=== PATIENT | male | born 1965 ===

== ENCOUNTER 2022-03-21 14:33 | Emergency (ER) | payer BC ==
[2022-03-21] MEDS ORDERED: Sodium Chloride 0.9% 10 ML Syringe FLUSH PRN (14:52)
[2022-03-21] MEDS ORDERED: ceFAZolin 2 GM in Sodium Chloride 0.9% 50 ML IV ONE (14:52)
[2022-03-21] MEDS ORDERED: HYDROmorphone 0.5 MG/0.5 ML Syringe IVPUSH ONE (14:53)
== END 2022-03-21 16:32 | disposition home or self-care (01) ==
LOC: JD.ED 14:33 → SUPCPDRO 14:33 → JD.ED 16:32
DX: S62.521B Displaced fracture of distal phalanx of right thumb, initial encounter for open fracture (principal); Z86.16 Personal history of COVID-19; Z72.0 Tobacco use; W23.1XXA Caught, crushed, jammed, or pinched between stationary objects, initial encounter
CPT/HCPCS: 73140; 96365; 96375; 99283; J0690; J1170; J3490; 99284